=== PATIENT | male | born 1985 | race African-American/Black ===

== ENCOUNTER 2016-11-04 17:49 | Emergency (ER) | payer OTHER ==
[~2016-11-04] VITALS: Ht 182.9 cm; Wt 136.1 kg
[2016-11-04 18:11] VITALS: BP 148/100
[2016-11-04] MEDS ORDERED: ACETAMINOPHEN 500 MG TAB (TYLENOL) PO ONE (18:35)
== END 2016-11-04 19:45 | disposition home or self-care (01) ==
LOC: ED 17:50
DX: J02.9 Acute pharyngitis, unspecified (principal)
CPT/HCPCS: 87070; 87651; 99283